=== PATIENT | female | born 1925 | race Caucasian/White ===

== ENCOUNTER 2017-03-06 23:25 | Inpatient (IN) | payer OTHER ==
[~2017-03-06] VITALS: Ht 165.1 cm; Wt 86.2 kg
[2017-03-07] MEDS ORDERED: NEOMYCIN-BACITRACIN-POLYM 15GM TOP OINT TOP ONE (00:39)
[2017-03-07 01:10] LABS: Basophils # (auto) 0.1 uL; Basophils % (auto) 1.3 % (0.0-2.0); Eosinophils # (auto) 0.2 uL; Eosinophils % (auto) 3.1 % (0.0-7.0); Hematocrit 37.4 % (36.0-46.0); Hemoglobin 12.5 g/dL (12.2-16.2); Lymphocytes # (auto) 1.6 uL; Lymphocytes % (auto) 24.4 % (10.0-50.0); Mean Corpuscular Hgb Conc. 33.4 g/dL (32.0-36.0); Mean Corpuscular Volume 92.9 fL (80.0-100.0); Monocytes # (auto) 0.6 uL; Monocytes % (auto) 9.9 % (0.0-12.0); Neutrophils % (auto) 61.3 % (37.0-80.0); Nucleated Red Blood Cells % 0.1 %; Platelet Count (auto) 216 10^3/uL (140-450); Red Blood Cells 4.03 10^6/uL (4.0-5.20); Red Cell Distribution Width 14.5 % (11.8-14.3); White Blood Cell 6.5 10^3/uL (4.4-10.8)
[2017-03-07 01:26] LABS: Alanine Aminotransferase 12 U/L (13-56); Albumin 2.2 g/dL (3.4-5.0); Anion Gap 10 (5-15); Aspartate Aminotransferase 25 U/L (15-37); BUN/Creatinine Ratio 21.9; Blood Alcohol < 3.0 mg/dL (0-5); Blood Urea Nitrogen 14 mg/dL (7-18); Carbon Dioxide 27 mmol/L (21-32); Chloride 102 mmol/L (98-107); GFR African American 112 mL/min; GFR Non-African American 93 mL/min; Glucose 83 mg/dL (74-106); Potassium 3.4 mmol/L (3.5-5.1); Sodium 139 mmol/L (136-145)
[2017-03-07 01:30] LABS: Alkaline Phosphatase 77 U/L (45-117); Bilirubin, Total 0.5 mg/dL (0.2-1.0); Total Protein 5.5 g/dL (6.4-8.2)
[2017-03-07] MEDS ORDERED: NEOMYCIN-BACITRACIN-POLYM UNITDOSE PKG TOP OINT TOP ONE (01:45)
[2017-03-07] MEDS ORDERED: SODIUM CHLORIDE 0.9% 1,000 ML IV ONE (02:45)
[2017-03-07] MEDS ORDERED: LORazepam 2MG/ML-1ML VIAL IV ONE (02:45)
[2017-03-07] MEDS ORDERED: ONDANSETRON HCL 4 MG/2 ML VIAL IV ONE (02:45)
[2017-03-07] MEDS ORDERED: HYDROmorphone HCL 2 MG/ML VL IV ONE (02:45)
[2017-03-07 03:14] LABS: Alcohol, Urine < 3.0 mg/dL (0-5); Amphetamine Screen, Urine NEGATIVE (NEGATIVE); Barbiturate Scree,Urine NEGATIVE (NEGATIVE); Benzodiazephine Screen, Urine NEGATIVE (NEGATIVE); Cannabinoid Screen, Urine NEGATIVE (NEGATIVE); Cocaine Screen, Urine NEGATIVE (NEGATIVE); Opiate Scree,Urine NEGATIVE (NEGATIVE); Phencyclidine Screen, Urine NEGATIVE (NEGATIVE)
[2017-03-07 03:51] LABS: Urine Bacteria NONE SEEN /hpf (None Seen); Urine Blood Negative /uL (Negative); Urine Budding Yeast MODERATE /hpf (None Seen); Urine Hyaline Cast MOD /lpf (0 - 2); Urine Mucus FEW (None Seen); Urine Specific Gravity 1.016 (1.001-1.035); Urine WBC 27 /hpf (0 - 5)
[2017-03-07] MEDS ORDERED: FLUCONAZOLE 200MG/100ML 100 ML IV ONE (06:30)
[2017-03-07] MEDS ORDERED: MIRT30TA PO (10:55)
[2017-03-07] MEDS ORDERED: WARF1TAB PO (10:56)
[2017-03-07] MEDS ORDERED: ATEN-60 PO (10:56)
[2017-03-07] MEDS ORDERED: POTA10TA51 PO (10:57)
[2017-03-07] MEDS ORDERED: FURO40TA PO (10:58)
[2017-03-07] MEDS ORDERED: WARF3TAB20 PO (10:59)
[2017-03-07] MEDS ORDERED: DIGO0.1262 PO (10:59)
[2017-03-07] MEDS ORDERED: LEVO500T21 PO (10:59)
[2017-03-07] MEDS ORDERED: POTASSIUM CHLORIDE 20 MEQ, LIDOCAINE 1% (LOCAL ANESTH.) 2 ML in SODIUM CHL 0.9% 100 ML IV ONE (15:30)
[2017-03-07] MEDS ORDERED: cefTRIAXone 1GM/10ml IVPUSH 10 ML IV ONE (15:30)
[2017-03-07] MEDS ORDERED: POTASSIUM CHL 10% (20 MEQ/15ML) 15ml ORAL SOLN PO ONE (18:30)
[2017-03-07] MEDS ORDERED: ACETAMINOPHEN 325 MG TAB PO ONE (20:45)
[2017-03-07] MEDS ORDERED: HYDROcodone-ACET 5/325MG TAB PO ONE (20:45)
[2017-03-07 21:30] VITALS: BP 107/57
[2017-03-07 22:00] VITALS: BP 107/57
[2017-03-08] VITALS (7 sets, daily range): BP systolic 102–128; BP diastolic 55–82
[2017-03-08] MEDS ORDERED: ACETAMINOPHEN 325 MG TAB PO ONE
[2017-03-08] MEDS ORDERED: HYDROcodone-ACET 5/325MG TAB PO ONE
[2017-03-08 08:40] LABS: Albumin 2.1 g/dL (3.4-5.0); BUN/Creatinine Ratio 26.8; Bilirubin, Total 0.5 mg/dL (0.2-1.0); Calcium 8.2 mg/dL (8.5-10.1); Potassium 4.5 mmol/L (3.5-5.1); Total Protein 5.3 g/dL (6.4-8.2)
[2017-03-08] MEDS: cefTRIAXone 1GM/10ml IVPUSH 10 ML IV SCH (09:03)
[2017-03-08 09:17] LABS: Basophils # (auto) 0.2 uL; Basophils % (auto) 2.7 % (0.0-2.0); Eosinophils # (auto) 0.1 uL; Eosinophils % (auto) 1.7 % (0.0-7.0); Lymphocytes # (auto) 1.7 uL; Lymphocytes % (auto) 25.6 % (10.0-50.0); Mean Corpuscular Hemoglobin 31.4 pg (28.0-32.0); Mean Corpuscular Hgb Conc. 33.4 g/dL (32.0-36.0); Monocytes # (auto) 0.8 uL; Monocytes % (auto) 12.2 % (0.0-12.0); Neutrophils # (auto) 3.8 uL; Neutrophils % (auto) 57.8 % (37.0-80.0); Nucleated Red Blood Cells % 0.6 %; Platelet Count (auto) 212 10^3/uL (140-450); Red Blood Cells 3.83 10^6/uL (4.0-5.20); Red Cell Distribution Width 14.6 % (11.8-14.3); White Blood Cell 6.6 10^3/uL (4.4-10.8)
[2017-03-08] MEDS ORDERED: FLUCONAZOLE 200MG/100ML 100 ML IV SCH (10:00)
[2017-03-09 05:00] VITALS: BP 100/52
[2017-03-09 07:01] LABS: Hematocrit 33.5 % (36.0-46.0); Hemoglobin 11.1 g/dL (12.2-16.2); Mean Corpuscular Hemoglobin 30.8 pg (28.0-32.0); Mean Corpuscular Hgb Conc. 33.2 g/dL (32.0-36.0); Platelet Count (auto) 184 10^3/uL (140-450); Red Cell Distribution Width 14.4 % (11.8-14.3); White Blood Cell 5.7 10^3/uL (4.4-10.8)
[2017-03-09 07:07] LABS: Band Neutrophils % (manual) 0; Basophils % (manual) 0 (0.0-2.0); Blast Cells 0; Metamyelocytes % 0; Myelocytes % 0; Promyelocytes % 0; Reactive Lymphocytes 0
[2017-03-09 07:24] LABS: Calcium 7.9 mg/dL (8.5-10.1); Potassium 3.9 mmol/L (3.5-5.1)
[2017-03-09 07:34] LABS: Eosinophils % (manual) 2 (0-7); Lymphocytes % (manual) 19 (10.0-50.0); Monocytes % (manual) 7 (0-12)
[2017-03-09 09:00] VITALS: BP 113/73
[2017-03-09] MEDS: cefTRIAXone 1GM/10ml IVPUSH 10 ML IV SCH (10:14)
[2017-03-09 13:00] VITALS: BP 95/62
[2017-03-09 16:56] VITALS: BP_SYST 107; BP_SYST 152; BP_DIAS 107; BP_DIAS 65
[2017-03-09] MEDS: BOOST PLUS 8 ounce PO SCH (18:00)
[2017-03-09] MEDS: PRO-STAT 64 30ML PO SCH (18:01)
[2017-03-09 20:00] VITALS: BP 94/62
[2017-03-09 21:49] VITALS: BP 94/62
[2017-03-09] MEDS: ASCORBIC ACID 500 MG TAB PO SCH (21:58)
[2017-03-10 05:06] VITALS: BP 108/52
[2017-03-10] MEDS: BOOST PLUS 8 ounce PO SCH ×3 (07:20→18:00)
[2017-03-10] MEDS: PRO-STAT 64 30ML PO SCH ×2 (07:21→18:00)
[2017-03-10 08:00] VITALS: BP 108/52
[2017-03-10 08:12] LABS: Free T4 (Free Thyroxine) 0.86 ng/dL (0.89-1.76)
[2017-03-10 08:13] LABS: Folate (Folic Acid) 3.43 ng/mL (5.38-24)
[2017-03-10 09:00] VITALS: BP 99/63
[2017-03-10] MEDS: ASCORBIC ACID 500 MG TAB PO SCH ×3 (09:44→21:32)
[2017-03-10] MEDS: MULTIPLE VITAMINS W/ MINERALS TAB PO SCH ×2 (09:44→09:58)
[2017-03-10] MEDS: cefTRIAXone 1GM/10ml IVPUSH 10 ML IV SCH (09:44)
[2017-03-10] MEDS: THIAMINE INJ 100 MG, MULTIPLE VITAMIN 10 ML, FOLIC ACID 1 MG, MAGNESIUM SULF SDV 50% 8 ... IV SCH ×5 (12:51)
[2017-03-10 13:00] VITALS: BP 112/60
[2017-03-10 17:00] VITALS: BP 118/65
[2017-03-10 22:00] VITALS: BP 109/64
[2017-03-11 06:22] VITALS: BP 111/56
[2017-03-11 08:00] VITALS: BP 99/48
[2017-03-11] MEDS: BOOST PLUS 8 ounce PO SCH ×3 (08:00→18:00)
[2017-03-11] MEDS: PRO-STAT 64 30ML PO SCH ×2 (08:00→18:00)
[2017-03-11 09:00] VITALS: BP 99/48
[2017-03-11] MEDS: ASCORBIC ACID 500 MG TAB PO SCH ×2 (10:00→22:26)
[2017-03-11 10:43] LABS: Basophils # (auto) 0.1 uL; Eosinophils # (auto) 0.2 uL; Eosinophils % (auto) 3.3 % (0.0-7.0); Hematocrit 33.3 % (36.0-46.0); Lymphocytes # (auto) 1.3 uL; Lymphocytes % (auto) 22.1 % (10.0-50.0); Mean Corpuscular Hemoglobin 30.5 pg (28.0-32.0); Mean Corpuscular Hgb Conc. 33.1 g/dL (32.0-36.0); Monocytes # (auto) 0.7 uL; Monocytes % (auto) 11.6 % (0.0-12.0); Neutrophils # (auto) 3.6 uL; Platelet Count (auto) 188 10^3/uL (140-450); Red Blood Cells 3.62 10^6/uL (4.0-5.20); Red Cell Distribution Width 14.7 % (11.8-14.3); White Blood Cell 5.9 10^3/uL (4.4-10.8)
[2017-03-11 10:59] LABS: BUN/Creatinine Ratio 33.3; Calcium 7.7 mg/dL (8.5-10.1); Magnesium 2.4 mg/dL (1.6-2.6); Phosphorus 2.5 mg/dL (2.5-4.90); Potassium 3.6 mmol/L (3.5-5.1)
[2017-03-11] MEDS: cefTRIAXone 1GM/10ml IVPUSH 10 ML IV SCH (11:02)
[2017-03-11 13:00] VITALS: BP 93/53
[2017-03-11] MEDS: THIAMINE INJ 100 MG, MULTIPLE VITAMIN 10 ML, FOLIC ACID 1 MG, MAGNESIUM SULF SDV 50% 8 ... IV SCH ×5 (16:12)
[2017-03-11 17:00] VITALS: BP 109/60
[2017-03-11 21:39] VITALS: BP 106/58
[2017-03-11] MEDS: FLUCONAZOLE 200MG/100ML 100 ML IV SCH (22:27)
[2017-03-12 05:32] VITALS: BP 108/50
[2017-03-12 05:51] LABS: Hemoglobin 10.3 g/dL (12.2-16.2); Mean Corpuscular Hemoglobin 30.9 pg (28.0-32.0); Mean Corpuscular Hgb Conc. 33.3 g/dL (32.0-36.0); Platelet Count (auto) 174 10^3/uL (140-450); Red Blood Cells 3.33 10^6/uL (4.0-5.20); Red Cell Distribution Width 14.2 % (11.8-14.3); White Blood Cell 6.8 10^3/uL (4.4-10.8)
[2017-03-12 05:55] LABS: Basophils % (manual) 0 (0.0-2.0); Blast Cells 0; Eosinophils % (manual) 0 (0-7); Metamyelocytes % 0; Myelocytes % 0; Promyelocytes % 0; Reactive Lymphocytes 0
[2017-03-12 06:20] LABS: BUN/Creatinine Ratio 33.3; Calcium 7.6 mg/dL (8.5-10.1); Magnesium 2.5 mg/dL (1.6-2.6); Phosphorus 2.2 mg/dL (2.5-4.90); Potassium 3.4 mmol/L (3.5-5.1)
[2017-03-12 07:31] LABS: Band Neutrophils % (manual) 3; Lymphocytes % (manual) 22 (10.0-50.0); Monocytes % (manual) 7 (0-12)
[2017-03-12 08:00] VITALS: BP 109/63
[2017-03-12] MEDS: BOOST PLUS 8 ounce PO SCH ×3 (08:00→18:01)
[2017-03-12] MEDS: PRO-STAT 64 30ML PO SCH ×2 (08:00→17:59)
[2017-03-12 08:56] VITALS: BP 109/63
[2017-03-12] MEDS: cefTRIAXone 1GM/10ml IVPUSH 10 ML IV SCH (09:56)
[2017-03-12] MEDS: ASCORBIC ACID 500 MG TAB PO SCH ×2 (09:56→21:39)
[2017-03-12] MEDS ORDERED: ACETAMINOPHEN 325 MG TAB PO PRN (12:00)
[2017-03-12 13:00] VITALS: BP 124/73
[2017-03-12] MEDS: THIAMINE INJ 100 MG, MULTIPLE VITAMIN 10 ML, FOLIC ACID 1 MG, MAGNESIUM SULF SDV 50% 8 ... IV SCH ×5 (16:29)
[2017-03-12 17:18] VITALS: BP 113/62
[2017-03-12] MEDS: FLUCONAZOLE 200MG/100ML 100 ML IV SCH (21:39)
[2017-03-12 22:00] VITALS: BP 121/75
[2017-03-13 05:54] VITALS: BP 107/51
[2017-03-13 06:50] LABS: BUN/Creatinine Ratio 33.3; Calcium 7.6 mg/dL (8.5-10.1); Magnesium 2.3 mg/dL (1.6-2.6); Phosphorus 2.3 mg/dL (2.5-4.90); Potassium 3.5 mmol/L (3.5-5.1)
[2017-03-13 06:54] LABS: Hematocrit 30.5 % (36.0-46.0); Hemoglobin 10.4 g/dL (12.2-16.2); Mean Corpuscular Hemoglobin 31.2 pg (28.0-32.0); Mean Corpuscular Hgb Conc. 34.1 g/dL (32.0-36.0); Mean Corpuscular Volume 91.6 fL (80.0-100.0); Platelet Count (auto) 190 10^3/uL (140-450); Red Blood Cells 3.33 10^6/uL (4.0-5.20); Red Cell Distribution Width 14.6 % (11.8-14.3); White Blood Cell 5.5 10^3/uL (4.4-10.8)
[2017-03-13 07:07] LABS: Basophils % (manual) 0 (0.0-2.0); Blast Cells 0; Metamyelocytes % 0; Myelocytes % 0; Promyelocytes % 0; Reactive Lymphocytes 0
[2017-03-13 07:44] LABS: Band Neutrophils % (manual) 1; Eosinophils % (manual) 4 (0-7); Lymphocytes % (manual) 21 (10.0-50.0); Monocytes % (manual) 6 (0-12)
[2017-03-13 08:00] VITALS: BP 109/54
[2017-03-13 09:00] VITALS: BP 109/54
[2017-03-13] MEDS: cefTRIAXone 1GM/10ml IVPUSH 10 ML IV SCH (10:11)
[2017-03-13] MEDS: ASCORBIC ACID 500 MG TAB PO SCH ×2 (10:12→21:45)
[2017-03-13] MEDS: PRO-STAT 64 30ML PO SCH ×2 (10:18→18:54)
[2017-03-13] MEDS: BOOST PLUS 8 ounce PO SCH ×3 (10:18→18:54)
[2017-03-13 13:00] VITALS: BP 97/57
[2017-03-13] MEDS: THIAMINE INJ 100 MG, MULTIPLE VITAMIN 10 ML, FOLIC ACID 1 MG, MAGNESIUM SULF SDV 50% 8 ... IV SCH ×5 (13:12)
[2017-03-13 17:00] VITALS: BP 139/82
[2017-03-13 21:26] VITALS: BP 125/69
[2017-03-13] MEDS: FLUCONAZOLE 200MG/100ML 100 ML IV SCH (21:45)
[2017-03-14 05:16] VITALS: BP 116/61
[2017-03-14 09:00] VITALS: BP 119/64
[2017-03-14] MEDS: PRO-STAT 64 30ML PO SCH (09:13)
[2017-03-14] MEDS: ASCORBIC ACID 500 MG TAB PO SCH (09:13)
[2017-03-14] MEDS: BOOST PLUS 8 ounce PO SCH ×2 (09:14→12:00)
[2017-03-14] MEDS ORDERED: ASCO500T11 PO (09:40)
[2017-03-14] MEDS ORDERED: FLUC200T50 PO (09:40)
[2017-03-14] MEDS: THIAMINE INJ 100 MG, MULTIPLE VITAMIN 10 ML, FOLIC ACID 1 MG, MAGNESIUM SULF SDV 50% 8 ... IV SCH ×5 (12:29)
[2017-03-14 13:23] VITALS: BP 117/63
[2017-03-14 13:48] VITALS: BP 117/63
== END 2017-03-14 15:40 | disposition hospice, home (50) | DRG 757 ==
LOC: EDBD 23:25 → ER 23:28 → OVERFLOW 23:29 → EAST 03-07 22:15
PROVIDERS: ADMIT Nurse Practitioner Family; ATTEND Internal Medicine
DX: B37.49 Other urogenital candidiasis (principal); G92 Toxic encephalopathy; E44.0 Moderate protein-calorie malnutrition; E87.2 Acidosis; D68.69 Other thrombophilia; I48.91 Unspecified atrial fibrillation; I11.0 Hypertensive heart disease with heart failure; I50.9 Heart failure, unspecified; E11.9 Type 2 diabetes mellitus without complications; E53.8 Deficiency of other specified B group vitamins; G30.9 Alzheimer's disease, unspecified; E87.6 Hypokalemia; E78.5 Hyperlipidemia, unspecified; E86.0 Dehydration; F02.80 Dementia in other diseases classified elsewhere, unspecified severity, without behavioral disturbance, psychotic disturbance, mood disturbance, and anxiety; R09.02 Hypoxemia; F10.20 Alcohol dependence, uncomplicated; R29.6 Repeated falls; Z51.5 Encounter for palliative care; Z53.20 Procedure and treatment not carried out because of patient's decision for unspecified reasons; L08.9 Local infection of the skin and subcutaneous tissue, unspecified; R26.89 Other abnormalities of gait and mobility; E78.00 Pure hypercholesterolemia, unspecified; Z66 Do not resuscitate; R58 Hemorrhage, not elsewhere classified; L98.8 Other specified disorders of the skin and subcutaneous tissue; Z79.01 Long term (current) use of anticoagulants; Z90.710 Acquired absence of both cervix and uterus; Z71.3 Dietary counseling and surveillance; Z68.31 Body mass index [BMI] 31.0-31.9, adult; Z90.49 Acquired absence of other specified parts of digestive tract; Z79.899 Other long term (current) drug therapy
CPT/HCPCS: 36415; 36600; 70450; 71045; 80048; 80053; 80307; 80320; 81001; 82607; 82746; 82805; 83735; 84100; 84439; 84443; 84484; 85007; 85025; 85027; 87070; 87086; 92610; 93005; 95819; 97163; J1450; J2001; J2405